=== PATIENT | female | born 1980 | race Two or more races ===

== ENCOUNTER 2018-07-13 11:21 | Outpatient (CLI) | payer OTHER | END 2018-07-13 16:47 | disposition home or self-care (01) | LOC: RX STUDY 11:21 | DX: N84.0 Polyp of corpus uteri (principal); N97.1 Female infertility of tubal origin ==

== ENCOUNTER 2025-04-30 07:49 | Outpatient (CLI) | payer OTHER ==
[2025-04-30 08:43] LABS: BASO % 0.6 % (0.1-1.2); EOS # 0.09 (0.04-0.54); EOS % 1.7 % (0.7-7.0); LYMPH # 2.23 (1.18-3.74); LYMPH % 43.0 % (19.3-53.1); MEAN PLATELET VOLUME 9.10 fl (9.4-12.4); MONO # 0.51 (0.24-0.82); MONO % 9.8 % (4.7-12.5); NEUT # 2.32 (1.56-6.13); NEUT % 44.7 % (34.0-71.1); RED CELL DISTRIBUTION WIDTH 13.2 % (11.6-14.4)
[2025-04-30 09:23] LABS: ALT/SGPT 45.0 U/L (12-78); AST/SGOT 20.0 U/L (15-37); BILIRUBIN TOTAL 0.77 mg/dL (0.3-1.2); BUN CREA RATIO 28.0 (7.0-25.0); CREATININE SERUM 0.71 mg/dL (0.55-1.02); GFR 90.27; GLOBULINA 4.2 G/DL (2.4-3.5); GLUCOSE FASTING 108.0 mg/dL (65-100); HDL 38.0 mg/dl (40-60); OSMOLALITY SERUM 283.0 MOSM/KG (275-295); TSH 3.87 uIU/mL (0.358-3.74); VLDL 98.0 (0-39)
[2025-04-30 09:24] LABS: CHOL HDL RATIO 6.7 (0-5.0); LDL 117.0 mg/dl (0-130)
[2025-04-30 10:10] LABS: URINE APPEARANCE Clear; URINE BILIRRUBIN Negative (NEGATIVE); URINE BLOOD Large; URINE COLOR Yellow; URINE GLUCOSE Negative (NEGATIVE); URINE KETONE Negative (NEGATIVE); URINE LEUKOCYTE Negative; URINE NITRATE Negative; URINE PROTEIN Negative (NEGATIVE); URINE UROBILINOGEN 0.2 E.U./dl
[2025-04-30 10:13] LABS: URINE BACTERIA 616.6 uL (0.0-1933); URINE EPITHELIAL CELLS 10.6 uL (0.0-38.8); URINE RBC 11.1 uL (0.0-20.8); URINE WBC 2.7 uL (0.0-23.2)
[2025-04-30 11:56] LABS: URINE CAST 0.00 uL (0.0-1.40)
== END 2025-04-30 08:01 | disposition home or self-care (01) ==
LOC: LAB 07:49
DX: E03.9 Hypothyroidism, unspecified (principal); E16.2 Hypoglycemia, unspecified; E78.5 Hyperlipidemia, unspecified; E55.9 Vitamin D deficiency, unspecified; C56.2 Malignant neoplasm of left ovary

== ENCOUNTER 2025-04-30 08:23 | Outpatient (CLI) | payer OTHER | END 2025-04-30 08:33 | disposition home or self-care (01) | LOC: MAMO-SONO 08:23 | PROVIDERS: ATTEND Specialist | DX: N60.01 Solitary cyst of right breast (principal); N60.02 Solitary cyst of left breast; Z12.31 Encounter for screening mammogram for malignant neoplasm of breast ==